=== PATIENT | male | born 1990 | race African-American/Black ===

== ENCOUNTER 2024-11-24 01:37 | Emergency (ER) | payer SELFPAY ==
[~2024-11-24] VITALS: Ht 177.8 cm; Wt 77.1 kg
[2024-11-24] MEDS: ALBUTEROL/IPRATROPIUM 3 ML NEB NEB ONE (02:22)
[2024-11-24] MEDS: ALBUTEROL SULF 0.083% NEB SOLN 3 ML NEB NEB STA (02:22)
[2024-11-24] MEDS: PREDNISONE 20 MG TAB PO ONE (02:23)
[2024-11-24] MEDS ORDERED: COMPACT COMPRE1 EACH (04:04)
[2024-11-24] MEDS ORDERED: ALBUTEROL2.5 MG/3 M INH (04:04)
[2024-11-24] MEDS ORDERED: PREDNISONE50 MG PO (04:04)
[2024-11-24] MEDS ORDERED: VENTOLIN HFA18 GM INH (04:04)
[2024-11-24 04:09] VITALS: PULSE 83; RESP 17; TEMP 98.2
[2024-11-24 04:15] VITALS: BP 128/76; PULSE 83; RESP 17; TEMP 98.2; O2SAT 98
== END 2024-11-24 04:14 | disposition home or self-care (01) ==
LOC: FSED 01:40
DX: J45.909 Unspecified asthma, uncomplicated (principal); R06.02 Shortness of breath
CPT/HCPCS: 71046; 99284; J7512